=== PATIENT | male | born 1970 | race Caucasian/White ===

== ENCOUNTER → 2017-09-15 | Day surgery (SDC) | payer BC ==
[2017-09-08 09:51] VITALS: Ht 179.1 cm; Wt 133.2 kg
[~2017-09-15] VITALS: Ht 179.1 cm; Wt 133.2 kg
[~2017-09-15] MED LIST: ATROPINE SULFATE 0.1 MG/ML 5ML SYR IV PRN; BUPIVACAINE 0.5 % 5 MG/1 ML PF 10ML VIAL ONE; CETI10TA84 PO; CLINDAMYCIN 600MG IV SCH; EpHEDrine SULFATE INJ 50 MG/ML AMP IV PRN; FAMO40TA6 PO; FENTANYL CITRATE INJ 50 MCG/1 ML 2 ML VIAL IV PRN; FENTANYL CITRATE INJ 50 MCG/1 ML 2 ML VIAL ONE; LACTATED RINGER'S 1000ML 1,000 ML IV SCH; LIDOCAINE HCL 1% 20 ML VIAL ONE; LIDOCAINE HCL 2% 2 ML VIAL (20MG/ML) ONE; LOSA1TAB38 PO; MIDAZOLAM HCL 1 MG/ML 2ML VIAL ONE; MOME6000 NAE; MONT1TAB3 PO; ONDANSETRON INJ 2 MG/ML 2 ML VIAL IV PRN; OXYCODONE/ACETAMINOPHEN 5-325 TAB PO PRN; PANT1TAB3 PO; PROPOFOL IV EMULSION 10 MG/ML 20 ML VIAL ONE; SODIUM CHLORIDE 0.9% 1000ML 1,000 ML IV SCH; TRAM-10 PO
--- NOTE | 2017-09-15 07:36 | History & Physical Bridge - [place] ---
H&P Re-Evaluation Bridge Note: I have examined the patient, reviewed the History & Physical and in the interval since the performance of the History & Physical I have noted the following changes of clinical significance: No changes noted
--- NOTE | 2017-09-15 08:36 | [facility] Post Operative Brief Note ---
Immediate Operative Summary Operative Date September 15, 2017. Pre-Operative Diagnosis Carpal tunnel syndrome, right Post-Operative Diagnosis same as preop Procedure(s) Performed Right Carpal Tunnel Release Surgeon Dr. Awan Esol Teacher Assistant Surgeon(s) ALEJANDRO Sheehan Estimated Blood Loss 0ML Findings Consistent with Post-Op Diagnosis Specimens none Drains None Anesthesia Type MAC Complication(s) none Disposition Disposition:
[2017-09-15 08:40] VITALS: TEMP 36.8
--- NOTE | 2017-09-15 08:42 | Discharge Instructions-SurgCtr ---
Discharge Instructions Date of Service September 15, 2017. Visit Reason for Visit: Right Carpal Tunnel Syndrome Discharge Discharge Diagnosis / Problem: SAME ABOVE Discharge Goals Goal(s): Decrease discomfort, Improve function Activity Recommendations Activity Limitations: as noted below Lifting Limitations: gradually increase as tolerated Exercise/Sports Limitations: until after follow-up appointment Shower/Bathe: tomorrow Anesthesia . Post Anesthesia Instructions: If you have had General Anesthesia or IV Sedation: * Do not drive today. * Resume driving when surgeon permits. * Do not make important decisions or sign legal documents today. * Call surgeon for: 1. Temperature elevations greater than 101 degrees F. 2. Uncontrollable pain. 3. Excessive bleeding. 4. Persistent nausea and vomiting. 5. Medication intolerance (nausea, vomiting or rash). * For nausea and vomiting use only clear liquids such as: tea, soda, bouillon until nausea subsides, then gradually increase diet as tolerated. * If you have any concerns or questions, call your surgeon's office. If physician is unavailable and it is an emergency, call 911 or go to the nearest emergency room. . Instructions / Follow-Up Instructions / Follow-Up MEDICATIONS: * Resume previous medications unless instructed otherwise by your surgeon. * Always take pain medication on a full stomach or with food to avoid upset stomach. * Do not drink alcohol or drive while taking narcotics. * Ibuprofen or Tylenol may be taken if narcotic not needed. SPECIAL CARE INSTRUCTIONS: __ None _X_ Keep extremity elevated and iced x 48 hours; apply ice 20-30 minutes 8-10 times/day. May remove at night. __ Sling __24 hrs/day __ Remove at night __ Shoulder Immobilizer __ 24 hrs/day __ Remove at night _X_ Dressing _X_ Maintain until seen in office, may shower with plastic over site __ Remove dressings in 24-48 hours and then may shower __ Cover incisions with band-aids after showering __ Do not remove steri-strips Call physician if chills or temperature rises above 102 degrees or pain unrelieved by prescribed pain medications at . . Diet Recommendations Home Diet: no limitations Procedures Procedures Performed: Right Carpal Tunnel Release Pending Studies Studies pending at discharge: no Medical Emergencies . Who to Call and When: Medical Emergencies: If at any time you feel your situation is an emergency, please call 911 immediately. . Non-Emergent Contact Non-Emergency issues call your: Primary Care Provider . . "Provider Documentation" section prepared by Kt Butt. .
--- NOTE | 2017-09-15 08:46 | Anesthesia Progress Nt - [facility] ---
Anesthesia Post Op Note Date & Time September 15, 2017 at 08:46 Vital Signs Pain Intensity: 0 Vital Signs Past 12 Hours Date Time Temp Pulse Resp B/P (MAP) Pulse Ox O2 Delivery O2 Flow Rate FiO2 09/15/17 08:40 36.8 92 16 157/89 (111) 95 Room Air 09/15/17 07:13 36.7 90 18 181/118 (139) 96 Room Air Notes Mental Status: alert / awake / arousable, participated in evaluation Pt Amnestic to Procedure: Yes Nausea / Vomiting: adequately controlled Pain: adequately controlled Airway Patency, RR, SpO2: stable & adequate BP & HR: stable & adequate Hydration State: stable & adequate Anesthetic Complications: no major complications apparent
[2017-09-15 09:01] VITALS: PULSE 90; O2SAT 96
[2017-09-15 09:11] VITALS: BP 140/72
--- NOTE | 2017-09-15 10:50 | OPERATIVE REPORT ---
DATE OF OPERATION: 09/15/2017 PREOPERATIVE DIAGNOSIS: Right carpal tunnel syndrome. POSTOPERATIVE DIAGNOSIS: Same. PROCEDURE: Decompression median nerve release, transverse carpal ligament, right wrist. SURGEON: Chris Awan MD STERILE PROCESSING TECHNICIAN: Kt Butt PA-C. ANESTHESIOLOGIST: Kt Morris MD ANESTHESIA: Local with IV sedation. DRAINS: None. COMPLICATIONS: None. CONDITION: The patient tolerated the procedure well and returned to recovery in apparent satisfactory condition. INDICATIONS FOR SURGERY: Leandro is a 47-year-old male with increasing pain and numbness in both hands, right worse than left, was diagnosed a carpal tunnel syndrome and elected to go ahead and proceed with surgery. Procedure, expected outcomes and side effects were all explained in detail. DESCRIPTION OF PROCEDURE: The patient was taken to the OR at which time he was placed supine on the operating table. The right hand was prepped and draped in the usual sterile fashion for this surgery. The anticipated incision site was infiltrated with 1% Xylocaine. A forearm tourniquet was placed on the arm and tourniquet was placed up to 250 mmHg. Incision was made vertically over the transverse carpal tunnel ligament. Dissection was done down until the palmar fascia was identified and divided with a 15-blade. The transverse carpal ligament was identified and also divided with the 15-blade and upbiting scissors. A small portion of the forearm fascia was divided also. Electrocautery was used to control any areas of bleeding. The nerve was freed up from any scar tissue and adequately decompressed. The wound then was copiously irrigated. It was closed then with interrupted 4-0 nylon sutures. Marcaine without Epinephrine was placed in the skin edges. It was closed in a layered fashion. We placed a sterile dressing of Xeroform, 4 x 4, volar splint, and an Noah bandage. DISPOSITION: The patient was returned back to the recovery room in apparent satisfactory condition. I attest to the content of the Intraoperative Record and any orders documented therein. Any exception s are noted below.
== END | disposition home or self-care (01) ==
LOC: X.SURG 07:00
PROVIDERS: ATTEND Orthopaedic Surgery
DX: G56.01 Carpal tunnel syndrome, right upper limb (principal); G47.33 Obstructive sleep apnea (adult) (pediatric); I10 Essential (primary) hypertension; E66.9 Obesity, unspecified; Z88.0 Allergy status to penicillin; Z99.89 Dependence on other enabling machines and devices; Z87.442 Personal history of urinary calculi

== ENCOUNTER 2021-07-31 05:02 | Observation (INO) ==
--- NOTE | 2021-05-21 11:06 | PAT Medication Instructions ---
Medication Instructions Date of Service May 21, 2021 Home Medications albuterol sulfate 90 mcg/actuation aerosol inhaler 1 inh INHALATION QID PRN famotidine 20 mg tablet 20 mg PO BID fluticasone 250 mcg-salmeterol 50 mcg/dose blistr powdr for inhalation (Advair Diskus) 1 inh INHALATION BID hydrochlorothiazide 25 mg tablet 25 mg PO QAM losartan 100 mg tablet 100 mg PO QAM metformin 500 mg tablet 500 mg PO BID metoprolol succinate 25 mg tablet,extended release 24 hr 25 mg PO HS montelukast 10 mg tablet 10 mg PO QAM pantoprazole 40 mg tablet,delayed release 40 mg PO QAM potassium citrate 10 mEq (1,080 mg) tablet,extended release 10 meq PO UD celecoxib 200 mg capsule 200 mg PO HS ASK your surgeon for instructions celecoxib 200 mg capsule 200 mg PO HS DO NOT take the morning of surgery hydrochlorothiazide 25 mg tablet 25 mg PO QAM losartan 100 mg tablet 100 mg PO QAM metformin 500 mg tablet 500 mg PO BID montelukast 10 mg tablet 10 mg PO QAM potassium citrate 10 mEq (1,080 mg) tablet,extended release 10 meq PO UD Take morning of surgery With a small sip of water, OTHERWISE NOTHING TO EAT OR DRINK AFTER MIDNIGHT: famotidine 20 mg tablet 20 mg PO BID fluticasone 250 mcg-salmeterol 50 mcg/dose blistr powdr for inhalation (Advair Diskus) 1 inh INHALATION BID albuterol sulfate 90 mcg/actuation aerosol inhaler 1 inh INHALATION QID PRN(use if needed; please bring with you to hospital day of surgery if possible). pantoprazole 40 mg tablet,delayed release 40 mg PO QAM Take evening before surgery albuterol sulfate 90 mcg/actuation aerosol inhaler 1 inh INHALATION QID PRN(if needed) famotidine 20 mg tablet 20 mg PO BID fluticasone 250 mcg-salmeterol 50 mcg/dose blistr powdr for inhalation (Advair Diskus) 1 inh INHALATION BID metformin 500 mg tablet 500 mg PO BID metoprolol succinate 25 mg tablet,extended release 24 hr 25 mg PO HS Other Notes If you have any questions please call us at [phone] or [phone] or [phone] or [phone]
--- NOTE | 2021-05-22 11:52 | Anesthesiology Consultation ---
Date of Service May 22, 2021 Assessment & Plan (1) Encounter for pre-operative examination: - check BSG am DOS. - elevated A1c: Dr. Pang advised optimization note be sent to PCP for evaluation of diabetic control and optimization prior to surgery. Optimization note completed to be faxed to PCP office including notation on coordinating with surgeon's office. Surgeon's office previously made aware of elevated A1c and per Radha, Dr. Gonzales will require lower A1c prior to patient proceeding with surgery. They are coordinating with patient. - Outpatient joint assessment: Patient is currently scheduled for inpatient pathway. If re-evaluated pending system levels during current pandemic/surgeon requests outpatient pathway, patient is not recommended outpatient joint candidate. - COVID screening: Per assessment on 05/22/2021: Travel screen negative, no known COVID-19 positive contacts or current COVID-19 related symptoms in past 2 weeks. Surgeon arranging preop COVID testing, scheduled 06/17/2021 [place]. Awaiting results. Chart Review Chart Review: Pending: Refer to Additional Notes / Consult section and Patient seen in Pre Admission Testing Teaching & Discussion Pre-Anesthesia Teaching/Discussion Notes: Instructed NPO after midnight before surgery, except medications with 15 cc of water. Medication instructions provided according to the PAT guidelines. History Surgery Operation Date: 06/19/21 07:00 Proposed Procedures p Right Total Knee Arthroplasty - Chato Eleni Gonzales MD Height/Weight Height: 5 ft 10 in Weight: 144.8 kg Allergies Allergy/AdvReac Type Severity Reaction Status Date / Time aspirin Allergy Intermediate Hives Verified 05/21/21 09:24 Penicillins Allergy Intermediate Hives Verified 05/21/21 09:24 prednisone Allergy Intermediate Dyspnea Verified 05/21/21 09:24 Additional Notes: he reports no symptoms with regular aspirin, hives with coated aspirin Medications Home Medications Medication Instructions Recorded Confirmed Last Taken albuterol sulfate 90 mcg/actuation 1 inh INHALATION QID PRN 01/21/21 05/21/21 01/22/21 aerosol inhaler famotidine 20 mg tablet 20 mg PO BID 01/21/21 05/21/21 01/24/21 21:00 fluticasone 250 mcg-salmeterol 50 1 inh INHALATION BID 01/21/21 05/21/21 01/24/21 07:00 mcg/dose blistr powdr for inhalation (Advair Diskus) hydrochlorothiazide 25 mg tablet 25 mg PO QAM 01/21/21 05/21/21 01/24/21 07:00 losartan 100 mg tablet 100 mg PO QAM 01/21/21 05/21/21 01/24/21 08:00 metformin 500 mg tablet 500 mg PO BID 01/21/21 05/21/21 01/23/21 07:00 metoprolol succinate 25 mg 25 mg PO 01/21/21 05/21/21 01/24/21 21:00 tablet,extended release 24 hr montelukast 10 mg tablet 10 mg PO QAM 01/21/21 05/21/21 01/24/21 07:00 pantoprazole 40 mg tablet,delayed 40 mg PO QAM 01/21/21 05/21/21 01/24/21 07:00 release potassium citrate 10 mEq (1,080 10 meq PO UD 01/21/21 05/21/21 01/24/21 18:00 mg) tablet,extended release celecoxib 200 mg capsule 200 mg PO HS 05/21/21 05/21/21 Unknown Past Medical History Medical History (Updated 05/22/21 @ 11:58 by Isela Powell PA-C) Asthma stable > 3 months since last albuterol inhaler us needed Diabetes mellitus, type 2 NIDDM GERD (gastroesophageal reflux disease) controlled History of COVID-19 Dx 09/24/20 (S) > symptoms at time of: fever, SOB, chills, sent home from [facility] ER and returned next day for antibody transfusion > resolved Hypertension controlled, stable per pt Morbid obesity with BMI of 45.0-49.9, adult Sleep apnea BIPAP (compliant) Patient denies h/o stroke, seizures, heart attack, heart failure, blood clots or blood transfusions. Exercise / Class Metabolic Activity III < 4 Walking/Shop/Light housework (denies CP or SOB with regular activity) Past Family History Family History Other No family history of adverse response to anesthesia Past Surgical History Surgical History (Updated 05/22/21 @ 12:00 by Isela Powell PA-C) History of arthroscopy of right knee partial medial and lateral meniscectomy 01/25/2021: Grade 2 view, MAC#3, ETT#8.0, atraumatic x 1. No issues per anesthesia postop progress note. History of hand surgery bilat carpal tunnel release Hx of lithotripsy Multiple Past Anesthesia History No Hx of Anesthesia Complications and No Family Hx of Anesthesia Complications History of PONV No Hx of PONV and No Hx of Motion Sickness Social History Smoking Status: Never smoker Do You Dip or Chew Tobacco: No Hx Alcohol Use: No Hx Substance Use: No substance use type: does not use Review of Systems Chronic cough occasionally productive of phlegm associated with watery eyes with allergies and cold weather. Patient denies chest pain, shortness of breath, dyspnea on exertion, fever, chills, wheezing, or palpitations. Physical Exam Vital Signs Vitals BP 112/77 P 88 TEMP 98.4 SP02 95% on RA RESP 17 Physical Short, thick neck Limited cervical extension range of motion without pain Full TMJ range of motion TMD 3 finger breaths Mallampati Score 2 Dentition: intact, one missing left upper side; denies loose or chipped teeth, caps/crowns, implants or bridges Lungs: normal respiratory effort. Clear throughout to auscultation, no adventitious breath sounds Cardiac: regular rate and rhythm, no murmurs noted Carotid arteries: negative bruit bilat Extremities: no distal extremity edema Lab Results Anesthesia Preop Results Results Anesthesia Widget: WBC 8.68 K/uL (4.8-10.8) 05/22/21 Hgb 15.8 g/dL (14.0-18.0) 05/22/21 Hct 47.0 % (42-52) 05/22/21 Plt 206 K/uL (130-400) 05/22/21 Na 135 mmol/L (136-145) L 05/22/21 K 4.1 mmol/L (3.5-5.1) 05/22/21 Cl 98 mmol/L (98-107) 05/22/21 CO2 30 mmol/L (21-32) 05/22/21 BUN 14 mg/dl (6-23) 05/22/21 Creat 0.94 mg/dl (0.6-1.4) 05/22/21 Glucose Level 240 mg/dl (70-99) H 05/22/21 PT 10.3 Seconds (9.0-12.0) 05/22/21 PTT 25.9 Seconds (21.0-31.0) 05/22/21 INR 1.0 (0.9-1.1) 05/22/21 HA1c 8.7 % (4.5-5.6) H 05/22/21 Blood Type O Positive 05/22/21 Antibody Screen NEGATIVE 05/22/21 Lab Comments: Surgeon's office made aware of elevated A1c. Testing Electrocardiogram Date: 01/22/21 Normal sinus rhythm, rate 83 bpm. Chest X-Ray Date: 01/22/21 FINDINGS: No pneumothorax. No pleural effusion. No large infiltrates or consolidative lesions are seen. Mild nonspecific p rominence of pulmonary interstitium is seen in bilateral bases which might represent scattered atelectasis. Cardiomediastinal silhouette is within normal limits in size. No significant pulmonary vascular congestion.. Osseous structures: Mild degenerative changes of the spine. IMPRESSION: 1. No large infiltrates or consolidative lesions. Possible minimal atelectasis at bilateral bases.
[2021-07-31] MEDS ORDERED: LR 60ML/HR IV SCH (06:00)
[2021-07-31] MEDS ORDERED: TRANEXAMIC ACID 1,000 MG **IV Intra-op IV SCH (06:00)
[2021-07-31] MEDS ORDERED: FAMOTIDINE 20 MG TAB PO SCH (06:00)
[2021-07-31] MEDS ORDERED: ROPIVACAINE 0.5% HCL/PF 150 MG, BUPIVACAINE 0.75% MPF 20 ML, EPINEPHrine 0.15 MG, Ketor... INFIL SCH (06:00)
[2021-07-31] MEDS ORDERED: LR 500ML BOLUS, THEN 15ML/HR IV SCH (06:00)
[2021-07-31] MEDS ORDERED: Scopolamine 1 MG TDSY TD SCH (06:00)
[2021-07-31] MEDS ORDERED: CeleBREX 200 MG CAP PO SCH ×2 (06:00→21:00)
[2021-07-31] MEDS ORDERED: TRANEXAMIC ACID 1,000 MG **IV Pre-op IV SCH (06:00)
[2021-07-31] MEDS ORDERED: traMADol HCL 50 MG TABLET PO SCH (06:00)
[2021-07-31] MEDS ORDERED: ACETAMINOPHEN 500 MG TAB PO SCH (06:00)
[2021-07-31 06:28] LABS: BUN Creatinine Ratio 15.4 (10-20); Calcium 9.1 mg/dl (8.5-10.1); Creatinine Clr Calc Pharmacy 132.8 ml/min; Est GFR (African American) 113.5 ml/min; Est GFR (Non-African American) 97.9 ml/min; Potassium 2.8 mmol/L (3.5-5.1)
[2021-07-31] MEDS ORDERED: BUPIVACAINE 0.5 % 5 MG/1 ML PF 10ML VIAL ONE (06:28)
[2021-07-31] MEDS ORDERED: fentaNYL citrate 100 MCG/2 ML VIAL ONE (06:38)
[2021-07-31] MEDS ORDERED: MIDAZOLAM HCL 1 MG/ML 2ML VIAL ONE (06:38)
[2021-07-31] MEDS ORDERED: ORTHO JOINT ANESTHETIC ONE (06:46)
--- NOTE | 2021-07-31 06:46 | History & Physical Bridge Note ---
Date of Service July 31, 2021 History & Physical Bridge Note I have examined the patient, reviewed the History & Physical and in the interval since the performance of the History & Physical I have noted the following changes of clinical significance: no changes noted Patient is aware of the risks, is asymptomatic, and tested negative for COVID- 19.
[2021-07-31] MEDS ORDERED: PROPOFOL IV EMULSION 10 MG/ML 20 ML VIAL IV ONE ×4 (07:28→09:36)
[2021-07-31] MEDS ORDERED: ATROPINE SULFATE 0.1 MG/ML 10ML SYR IV PRN (07:28)
[2021-07-31] MEDS ORDERED: fentaNYL citrate 100 MCG/2 ML VIAL IV PRN (07:28)
[2021-07-31] MEDS ORDERED: ePHEDrine sulfate 50 MG/ML AMP IV PRN (07:28)
[2021-07-31] MEDS ORDERED: ONDANSETRON INJ 2 MG/ML 2 ML VIAL IV PRN ×2 (07:28→10:28)
[2021-07-31] MEDS ORDERED: POTASSIUM CITRATE 10 MEQ TAB PO SCH ×2 (09:00→17:00)
--- NOTE | 2021-07-31 10:07 | Post Operative Brief Note ---
Immediate Post Op Note v1 Date of Surgery July 31, 2021 Pre & Post Diagnosis Operation Date: 07/31/21 07:00 Pre-Op Diagnosis: Degenerative Joint Disease, Right Knee Post-Op Diagnosis: Degenerative Joint Disease, Right Knee I identified the patient and participated in the time-out.: Yes Procedure Operation Date: 07/31/21 07:00 Actual Procedures p Right Total Knee Arthroplasty(Right) - Chato Gonzales MD Surgeon Chato Gonzales MD Call Center Consultant Ari Cevallos MD & M ALEJANDRO Macias Estimated Blood Loss 100 Findings Consistent with Post-Op Diagnosis Fluids 1200 cc Specimens Right knee contents Anesthesia Type MAC Spinal Regional Complications none
--- NOTE | 2021-07-31 10:08 | Operative Report ---
Post Operative Report Pre & Post Diagnosis Operation Date: 07/31/21 07:00 Pre-Op Diagnosis: Degenerative Joint Disease, Right Knee Post-Op Diagnosis: Degenerative Joint Disease, Right Knee I identified the patient and participated in the time-out.: Yes Procedure Operation Date: 07/31/21 07:00 Actual Procedures p Right Total Knee Arthroplasty(Right) - Chato Gonzales MD Surgeon Chato Gonzales MD Commercial Installer Ari Cevallos MD & M ALEJANDRO Macias Estimated Blood Loss 100 Findings See Below Examined Under Anesthesia: ROM -- There was 5 degrees to 135 degrees of flexion Ligamentous examination -- revealed stable Gonzalez, posterior drawer, varus and valgus stress at 0 and 30 degrees. Outerbridge Type III changes of Patella and Medial compartment. Degenerative medial meniscus posteriorly to apex. Fluids 1200 cc Specimens Right knee contents Anesthesia Type MAC Spinal Regional Complications none Indications This is a 51-year-old male who has clinical and radiographic findings consistent with osteoarthritis of the a right knee, that has failed conservative treatment. I recommended that a right total knee replacement be performed. The patient understands the risks of surgery, which include but not limited to: bleeding, infection, re-operation, damage to nerves and arteries, continued knee pain, knee stiffness, DVT, and . The patient understands all of these instructions and explanations, all of his questions have been satisfactorily addressed and the patient has elected to proceed. Informed consent was signed. Description of Procedure IMPLANTS: 1. Femur: Triathlon #6 right PS. 2. Tibia: Triathlon #6 [place]. 3. Insert: Triathlon #6 x 9 mm PS X3 poly. 4. Patella: Triathlon A38 x 11 mm X3 poly. 5. Simplex cement. Procedure: The patient was taken to the Operating Room and placed in the supine position after spinal and adductor canal nerve block was administered. My initials and a multidisciplinary time-out were used to identify the right leg as the correct operative limb. A tourniquet was placed high in the thigh. Prior to the incision, 3 grams of intravenous Ancef espinosa given. The right leg was then prepped and draped in a standard sterile fashion. An Esmarch was used to exsanguinate the leg and the tourniquet was inflated to 250 mmHg. The planned mid-line 20 cm incision was created exposing the extensor mechanism. The medial parapatellar arthrotomy was made and the patella was everted. The patella was addressed first. It was prepared by reaming from 25 mm down to 14 mm. An A38 button was found to fit best. The peg holes were made in the standard fashion. The femur was addressed next and the guide hi was placed intramedullary. The initial cutting block was placed with 5 degrees of valgus and removing 10 mm for the distal cut. The cut was made and the 4-in-1 cutting block for a size 6 femur was placed. These cuts and the cuts to place the box were made in the standard fashion. Our attention was then drawn to the tibia cut with the external cutting guide, taking 4 mm from the medial low side. There was sufficient extension and flexion gap to fit a 9 mm spacer. A #6 Tibial baseplate fit well. A trial with a 9 mm spacer showed excellent stability in both flexion and extension, with good ligament balance, and thumbs free patellar tracking. Range of motion of 0- 135 degrees. The tibial baseplate was prepped for the keel and stem. All components were removed. The tourniquet was deflated. Hemostasis was obtained. 90 ml of total knee cocktail were injected into the soft tissues and periosteum. A bone plug was placed in the femur and covered with bone wax. After a 15 minute break, the limb was exsanguinated again and the tourniquet was re-inflated. All surfaces were copiously irrigated prior to placement of the components. The femoral component followed by Tibial baseplate were cemented in place and the 9 mm X3 poly was placed. Next, the patellar button was placed using the same Simplex cement. Again with the range of motion and stability were unchanged. The extensor mechanism was closed with 1-0 and 0 Vicryl with the knee bent approximately 60 degrees in a standard fashion. The peritenon and deep fascia was closed with 2-0 Vicryl. The subcutaneous layer was closed with 3-0 Vicryl. The skin was closed with Zipline and shield. The limb was cleaned and dried. 4x4 dressing was placed over top followed by ABDs, sterile Webril, and a foot to thigh Noah bandage. The patient was then transferred to the Recovery Room in stable condition. The sponge and needle counts were correct. POST-OP INSTRUCTIONS: The patient will be WBAT. The patient will be admitted to the hospital. The patient will use the knee immobilizer when ambulating and standing until good quad control is achieved. Labs will be obtained during the stay. DVT prophylaxis will included aspirin for 6 weeks, TEDs, and mechanical foot pumps. The dressing will be changed prior to their discharge or postop day #2 and covered with a Silverlon dressing, whichever comes first. I attest to the content of the Intraoperative Record and any orders documented therein. Any exceptions are noted below.
--- NOTE | 2021-07-31 10:22 | Operative Report ---
Post Operative Report Pre & Post Diagnosis Operation Date: 06/19/21 07:00 <No data on this case meets the specified criteria> Operation Date: 07/31/21 07:00 Pre-Op Diagnosis: Degenerative Joint Disease, Right Knee Post-Op Diagnosis: Degenerative Joint Disease, Right Knee I identified the patient and participated in the time-out.: Yes Procedure Operation Date: 06/19/21 07:00 <No data on this case meets the specified criteria> Operation Date: 07/31/21 07:00 Actual Procedures p Right Total Knee Arthroplasty(Right) - Chato Gonzales MD Surgeon Chato Gonzales MD Electrical Contractor Ari Cevallos MD & M ALEJANDRO Macias Estimated Blood Loss 100 Findings Consistent with Post-Op Diagnosis Consistent with post op diagnosis Specimens No specimens Description of Procedure I participated in prepping dressing and assisted Dr. Gonzales during the procedure. Please see Dr. Gonzales note. I attest to the content of the Intraoperative Record and any orders documented therein. Any exceptions are noted below. Supervising Physician Co-Signing Physician Notes Dr. Gonzales
[2021-07-31] MEDS ORDERED: diphenhydrAMINE Capsule 25 MG CAP PO PRN (10:28)
[2021-07-31] MEDS ORDERED: MAGNESIUM HYDROXIDE SUSP 30 ML UDC PO PRN (10:28)
[2021-07-31] MEDS ORDERED: NALOXONE HCL 0.4 MG/1 ML VIAL/CARP IV PRN (10:28)
[2021-07-31] MEDS ORDERED: bisacodyL 10 MG SUPP PR PRN (10:28)
[2021-07-31] MEDS ORDERED: METOCLOPRAMIDE HCL INJ 5 MG/ML 2 ML VIAL IV PRN (10:28)
--- NOTE | 2021-07-31 10:52 | Operative Report ---
Post Operative Report Pre & Post Diagnosis Operation Date: 06/19/21 07:00 <No data on this case meets the specified criteria> Operation Date: 07/31/21 07:00 Pre-Op Diagnosis: Degenerative Joint Disease, Right Knee Post-Op Diagnosis: Degenerative Joint Disease, Right Knee I identified the patient and participated in the time-out.: Yes Procedure Operation Date: 06/19/21 07:00 <No data on this case meets the specified criteria> Operation Date: 07/31/21 07:00 Actual Procedures p Right Total Knee Arthroplasty(Right) - Chato Gonzales MD Surgeon Dr Chato Gonzales Take Away Attendant Ari Cevallos MD & M ALEJANDRO Macias Estimated Blood Loss 100 Findings Consistent with Post-Op Diagnosis Specimens none Description of Procedure Pt was taken to operating room, placed under general anesthesia with peripheral nerve block. Pt was given 2g Ancef IV. Prepped and draped in sterile fashion. I was present during the entire case and assisted with positioning, instrumentation, closure and dressings. Please see Dr. Gonzales's op report for further detail. Pt was awake and transferred to PACU in stable condition I attest to the content of the Intraoperative Record and any orders documented therein. Any exceptions are noted below. Supervising Physician Co-Signing Physician Notes Dr. Gonzales
--- NOTE | 2021-07-31 11:09 | XRay Report ---
XR knee RT 1 or 2V routine CLINICAL HISTORY: Surgical Post Op TECHNIQUE: 2 views of the right knee were obtained. Comparison: Comparison is made to knee radiographs 01/01/2021 FINDINGS: Postoperative changes of knee arthroplasty are seen. Subcutaneous emphysema is noted. Joint spaces ar e well-preserved. The alignment is anatomic. No joint effusion is seen. No soft tissue abnormality is seen. IMPRESSION: Expected postoperative appearance status post placement of total knee arthroplasty. ACT 112: Negative or not required by law. Electronically signed by: Antoine Lam M.D. 07/31/2021 11:07 AM
--- NOTE | 2021-07-31 11:20 | Anesthesiology Progress Note ---
Date of Service July 31, 2021 Anesthesia Post Procedure Vital Signs Vital Signs: Temp Pulse Pulse Resp BP Pulse Ox 07/31/21 10:55 79 20 115/68 94 07/31/21 10:45 72 17 108/72 94 07/31/21 10:34 97.2 F L 78 18 102/65 95 07/31/21 05:50 98.2 F 73 20 122/73 94 Transfer of Care Handoff Completed per policy Notes Mental Status: alert / awake / arousable and participated in evaluation Patient Amnestic to Procedure: Yes Nausea / Vomiting: adequately controlled Pain: adequately controlled Airway Patency, RR, SpO2: stable & adequate BP & HR: stable & adequate Hydration State: stable & adequate Neuraxial Anesthesia: was administered and sensory block is resolving Anesthetic Complications: no major complications apparent and Pt Satisfied with anesthetic care
[2021-07-31] MEDS ORDERED: ALBUTEROL HFA 8 GM INHALER INH PRN (12:14)
[2021-07-31] MEDS ORDERED: DEXTROSE 50% 50 ML SYRINGE IV PRN (12:36)
[2021-07-31] MEDS ORDERED: GLUCOSE 40% GEL 15 GM TUBE PO PRN (12:36)
[2021-07-31] MEDS ORDERED: GLUCOSE 10 TABS/TUBE PO PRN (12:36)
[2021-07-31] MEDS ORDERED: GLUCAGON FOR INJ 1 MG VIAL SQ PRN (12:36)
[2021-07-31] MEDS ORDERED: CARBOHYDRATES FOR HYPOGLYCEMIA PO PRN (12:36)
[2021-07-31] MEDS: oxyCODONE HCL IR 5 MG TAB (IMMEDIATE RELEASE) PO PRN ×3 (12:37→23:32)
[2021-07-31] MEDS: SODIUM CHLORIDE 0.9% 1000ML 1,000 ML IV SCH ×2 (12:37→21:20)
[2021-07-31] MEDS ORDERED: POTASSIUM CHLORIDE CRTAB 20 MEQ TABCR PO STA (12:39)
--- NOTE | 2021-07-31 12:44 | Hospitalist Consultation ---
Date of Consultation July 31, 2021 Assessment & Plan (1) Status post total knee replacement: Right sided TKA performed 07/31 Pain and VTE management per orthopedics (2) Hypokalemia: Suspect secondary to HCTZ use, will place this medication on hold c urrently KCl 10 meq x2 IV given during surgery which increased potassium from 2.8 -> 3.0 Give additional 40 meq PO now Repeat BMP in AM (3) Diabetes mellitus, type 2: HbA1C 6.9 in July T2DM diet On metformin 500mg PO BID and Trulicity (last took last Thursday) as outpatient - hold as inpatient While inpatient we will utilize Novolog: Goal BSG Range: Low 110 mg/dL, High 140 mg/dL Correction Factor: 45 mg/dL/unit No carb ratio BSGs ACHS if eating, q6h if npo Given good control as outpatient recommend discharging on his usual home medications (4) Sleep apnea: BiPAP HS - is bringing in his own (5) Hypertension: Continue losartan 100mg PO daily, metoprolol succinate 25mg PO HS HCTZ on hold as above due to hypokalemia (6) GERD (gastroesophageal reflux disease): Continue pantoprazole 40mg PO daily and famotidine 20mg PO BID (7) Asthma: Continue maintenance inhaler with Advair Diskus or hospital formulary equivalent VTE Prophylaxis - deferred to orthopedics Diet - T2DM Disposition - per orthopedics History of Present Illness Reason for Consultation: Post op medical management (diabetes, hypokalemia) Requesting Physician: Wilma Cevallos MD Attending Physician: Chato Gonzales MD History of Present Illness Danyel Del Angel is a 51 year old male elective admission for total knee arthroplasty performed today (07/31) by Dr Gonzales. Estimated blood loss 100ml. Patient reports doing well post operatively and is currently off oxygen. Medicine consulted for hypokalemia. Potassium 2.8 mmol/L pre-operatively. Received 20 meq IV during operation. Post operatively K 3.0. He usually takes Potassium citrate 20meq in the morning and 10 meq at night. He reports missing his dose this morning. Presumably this is due to him taking hydrochlorothiazide which he also did not take this morning. Medicine also consulted for his diabetes. He reports taking Trulicity on Wednesdays (would be due it today). He has held metformin for the last 3 days pre-operatively. HbA1C markedly improved from 8.7 in May to 6.9 today. He reports this is because his operation was cancelled due to this and he has made significant dietary changes since. He reports usual good blood pressure control with sBP 130s. Gerd under control but on famotidine and pantoprazole - recommended considering EGD as outpatient which he has never had performed. Allergies Allergy/AdvReac Type Severity Reaction Status Date / Time aspirin Allergy Intermediate Hives Verified 07/31/21 05:43 Penicillins Allergy Intermediate Hives Verified 07/31/21 05:43 prednisone Allergy Intermediate Dyspnea Verified 07/31/21 05:43 Home Medications Medication Instructions Recorded Confirmed Type albuterol sulfate 90 mcg/actuation 1 inh INHALATION QID PRN 01/21/21 07/31/21 History aerosol inhaler famotidine 20 mg tablet (Pepcid) 20 mg PO BID 01/21/21 07/31/21 History fluticasone 250 mcg-salmeterol 50 1 inh INHALATION BID 01/21/21 07/31/21 History mcg/dose blistr powdr for inhalation (Advair Diskus) hydrochlorothiazide 25 mg tablet 25 mg PO QAM 01/21/21 07/31/21 History losartan 100 mg tablet 100 mg PO QAM 01/21/21 07/31/21 History metformin 500 mg tablet 500 mg PO BID 01/21/21 07/31/21 History metoprolol succinate 25 mg 25 mg PO HS 01/21/21 07/31/21 History tablet,extended release 24 hr montelukast 10 mg tablet 10 mg PO QAM 01/21/21 07/31/21 History (Singulair) pantoprazole 40 mg tablet,delayed 40 mg PO QAM 01/21/21 07/31/21 History release (Protonix) potassium citrate 10 mEq (1,080 10 meq PO UD 01/21/21 07/31/21 History mg) tablet,extended release celecoxib 200 mg capsule (Celebrex) 200 mg PO HS 05/21/21 07/31/21 History dulaglutide 0.75 mg/0.5 mL 0.75 mg SUBCUT 07/31/21 History subcutaneous pen injector (Trulicity) Patient History Medical History (Updated 07/31/21 @ 16:37 by Chato Gonzales MD) Asthma stable > 3 months since last albuterol inhaler us needed Diabetes mellitus, type 2 GERD (gastroesophageal reflux disease) History of COVID-19 Dx 09/24/20 ([facility]) > symptoms at time of: fever, SOB, chills, sent home from [facility] and returned next day for antibody transfusion > resolved Hypertension Morbid obesity with BMI of 45.0-49.9, adult Osteoarthritis of right knee Sleep apnea BIPAP Surgical History (Updated 07/31/21 @ 12:34 by Minh Navarro MD) History of arthroscopy of right knee partial medial and lateral meniscectomy 01/25/2021: Grade 2 view, MAC#3, ETT#8.0, atraumatic x 1. No issues per anesthesia postop progress note. History of carpal tunnel release of both wrists Hx of lithotripsy Multiple Family History Other No family history of adverse response to anesthesia Social History Smoking Status: Never smoker Second Hand Exposure: No; Do You Dip or Chew Tobacco: No; Tobacco Cessation Education Requested by Patient: No Hx Alcohol Use: No Hx Substance Use: No Preferred Language: [place]ib[place]ian Communication Ability: Effective Loan Auditor Required: No Beliefs That Will Affect Care: None Current Living Situation: Spouse and Family Current Living Situation Comment: Lives with and kids Other Information That Helps Us Care for You: No Feels Safe at Home: Yes Safety Concerns: Feels Safe At This Time Assistive Devices: Walker Review of Systems Review of Systems: All systems reviewed & are unremarkable except as noted in Subjective Physical Exam Constitutional: WD/WN, vitals as above + morbidly obese Eyes: + anicteric sclerae; normal pupil size ENMT: external ear and nose normal, oropharynx normal Neck: trachea midline, no thyromegaly Respiratory: normal respiratory effort, lungs clear to auscultation Cardiovascular: RRR, no murmur, no edema Gastrointestinal (Abdomen): Inspection/Auscultation: normal bowel sounds Percussion/Palpation: abdomen soft; abdomen nontender, no guarding and abdomen not rigid Musculoskeletal: NV intact distal to operation site - good cap refill and sensation and 1st toe plantar/dorsiflexion intact Neurologic: awake; not confused Psychiatric: A+Ox3, euthymic affect Results & Data Results & Data ([facility]) Vital Signs (Past 12 Hours) Vital Signs Temp Pulse Pulse Resp BP Pulse Ox 07/31/21 11:55 75 15 110/68 95 07/31/21 11:35 83 18 118/70 94 07/31/21 11:20 36.6 C 75 20 113/68 94 07/31/21 11:05 75 18 109/87 94 07/31/21 10:55 79 20 115/68 94 07/31/21 10:45 72 17 108/72 94 07/31/21 10:34 36.2 C L 78 18 102/65 95 07/31/21 05:50 36.8 C 73 20 122/73 94 PG Care Time/CCT Total # of Minutes Spent Total Time Spent with Patient: Total time spent is greater than 50% in coordination of care (as documented) at patient's floor/unit and/or counseling patient: Coding Level of Care Code 71635 Office/OBS Consult Lvl 4 Diagnoses Status post total knee replacement Z96.659 Sleep apnea G47.30 Hypertension I10 GERD (gastroesophageal reflux disease) K21.9 Diabetes mellitus, type 2 E11.9 Hypokalemia E87.6 Asthma J45.909
[2021-07-31] MEDS: POTASSIUM CHLORIDE / WTR 10 MEQ/100 ML PLCT IV SCH (12:57)
[2021-07-31] MEDS: ceFAZolin 2000MG 2,000 MG/15 ML SYR IV SCH ×2 (16:24→23:31)
[2021-07-31] MEDS: Scopolamine CHECK PATCH PLACEMENT SCH ×2 (16:29→23:31)
--- NOTE | 2021-07-31 16:40 | Orthopedic Progress Note ---
Date of Service July 31, 2021 Assessment & Plan (1) Osteoarthritis of right knee: Plan: POD #0 s/p Right TKA, doing as well as expected. Diabetic diet. WBAT as tolerated with walker. OOB to chair. Continue pain control. Check labs tomorrow. DVT prophylaxis: TEDs 3 weeks, foot pumps while in hospital, ASA 81 mg BID for 6 weeks. PT/OT. D/C planning. Present on Admission?: Yes Admission and Anticipated Discharge Date Admission Date: July 31, 2021 Subjective Doing fine. Pain controlled with oral pain medicine. Review of Systems Review of Systems: All systems reviewed & are unremarkable except as noted in HPI & below Physical Exam Physical Exam: RLE: Sensation to light touch intact. wiggling toes. Able to preform straight leg raise. BCR < 2 sec. Dressing clean, dry, intact. Calf soft, non-tender. Results & Data ([facility]) Vital Signs (Past 12 Hours) Vital Signs Temp Pulse Pulse Resp BP Pulse Ox 07/31/21 15:10 36.9 C 68 16 105/66 96 07/31/21 14:10 36.7 C 70 16 95/57 L 95 07/31/21 13:10 64 16 111/69 95 07/31/21 12:39 36.3 C L 66 16 97/62 L 94 07/31/21 12:10 36.6 C 67 16 107/66 96 07/31/21 11:55 75 15 110/68 95 07/31/21 11:35 83 18 118/70 94 07/31/21 11:20 36.6 C 75 20 113/68 94 07/31/21 11:05 75 18 109/87 94 07/31/21 10:55 79 20 115/68 94 07/31/21 10:45 72 17 108/72 94 07/31/21 10:34 36.2 C L 78 18 102/65 95 07/31/21 05:50 36.8 C 73 20 122/73 94 Diagnostic Findings Reviewed AP and Lateral radiographs right knee showed expected findings with recent cemented TKA components in good position. No fracture or dislocation.
[2021-07-31] MEDS: FERROUS GLUCONATE 324 MG TAB PO SCH (17:44)
[2021-07-31] MEDS: ASCORBIC ACID 500 MG TAB PO SCH (17:44)
[2021-07-31] MEDS: INSULIN ASPART PER UNIT SC SCH ×2 (17:45→21:22)
[2021-07-31] MEDS ORDERED: METOPROLOL SUCC 25MG EXT REL TAB PO SCH (21:00)
[2021-07-31] MEDS ORDERED: SENNA 8.6 MG TAB PO SCH (21:00)
[2021-07-31] MEDS: FAMOTIDINE 20 MG TAB PO SCH (21:21)
[2021-07-31] MEDS: DOCUSATE SODIUM 100 MG CAP PO SCH (21:22)
[2021-07-31] MEDS: HYDROmorphone INJ 0.5 MG/0.5 ML SYR IV PRN (21:30)
[2021-08-01] MEDS: oxyCODONE HCL IR 5 MG TAB (IMMEDIATE RELEASE) PO PRN ×3 (03:48→12:12)
[2021-08-01 05:41] LABS: Hematocrit (blood only) 34.9 % (42-52); Hemoglobin 11.8 g/dL (14.0-18.0); Mean Corpuscular Hemoglobin 28.5 pg (25-34); Mean Corpuscular Hgb Conc 33.8 g/dL (32-36); Mean Corpuscular Volume 84.3 fL (80-100); Mean Platelet Volume 10.1 fL (7.4-10.4); Platelet Count 213 K/uL (130-400); RDW Coefficient of Variation 13.8 % (11.5-14.5); RDW Standard Deviation 42.2 fL (36.4-46.3); Red Blood Count 4.14 M/uL (4.7-6.1); White Blood Count 11.22 K/uL (4.8-10.8)
[2021-08-01 06:00] LABS: BUN Creatinine Ratio 17.6 (10-20); Calcium 8.1 mg/dl (8.5-10.1); Creatinine Clr Calc Pharmacy 132.8 ml/min; Est GFR (African American) 113.5 ml/min; Est GFR (Non-African American) 97.9 ml/min; Potassium 3.3 mmol/L (3.5-5.1)
--- NOTE | 2021-08-01 08:24 | Orthopedic Progress Note ---
Date of Service August 01, 2021 Assessment & Plan (1) S/P total knee replacement using cement: Plan: Patient's dressings were changed today by me. Zip line cover was placed and then Mepilex waterproof dressing was applied. Maximino stocking was applied as well. Continue with ice and elevation. He will have PT/OT today. Anticipate discharge to home later today as long as he continues to do well. Weight-bear as tolerated using his walker. Follow-up in the office next week as scheduled. He will leave the Mepilex in place. He may shower and get the knee wet. Avoid soaking. Written discharge instructions were provided. Admission and Anticipated Discharge Date Admission Date: July 31, 2021 Supervising Physician Co-Signing Physician Notes I, Dr. Gonzales, saw and examined the patient and discussed the management with my PA. I reviewed my PAs note and agree with the documented findings and the plan of care I developed. Subjective Patient is seen in his room this morning. Denies any chest pain, shortness of breath, nausea, vomiting, or abdominal pain. He is having some right knee pain. Patient was just medicated. Dates he only slept fair. No additional complaints. Review of Systems Review of Systems: Unchanged from yesterday. Physical Exam Physical Exam: General: Well-developed, well-nourished, middle-aged male, in no acute distress. Sitting on the bed. Alert and oriented. Skin: Warm and dry with good turgor. No rashes or lesions. Postsurgical dres sing is in place on the right knee. Upon removal, he has expected postoperative edema. No ecchymosis. Zip line is in place. Wound edges are well approximated. No active bleeding. There is scant dried drainage on his dressings. Musculoskeletal: Patient has intact motor function of the quadricep,, and toes. He is able to set his quad and perform a straight leg raise. This does cause significant discomfort. No pain with palpation over the quadricep, hamstring, gastroc, or ankle. Neurologic: Gross sensation is intact across the right leg by soft touch. Peripheral pulses are 2+. Results & Data ([facility]) Vital Signs (Past 12 Hours) Vital Signs Temp Pulse Resp BP Pulse Ox 08/01/21 07:08 37 C 84 16 90/57 L 92 08/01/21 02:41 37.2 C 100 H 18 103/62 95 03/23/22 21:46 37.6 C H 75 18 100/64 95 07/31/21 21:26 79 98/61 L Laboratory Results H&H this morning are 11.8 and 34.9. White count of 11.2. Sodium 136, potassium 3.3, chloride 102. BUN of 16, creatinine 0.91. Glucose level 155.
[2021-08-01] MEDS: FERROUS GLUCONATE 324 MG TAB PO SCH (08:33)
[2021-08-01] MEDS: ASCORBIC ACID 500 MG TAB PO SCH (08:33)
[2021-08-01] MEDS: INSULIN ASPART PER UNIT SC SCH ×2 (08:36→12:14)
[2021-08-01] MEDS: HYDROmorphone INJ 0.5 MG/0.5 ML SYR IV PRN (08:46)
[2021-08-01] MEDS: DOCUSATE SODIUM 100 MG CAP PO SCH (08:47)
[2021-08-01] MEDS: Scopolamine CHECK PATCH PLACEMENT SCH (08:47)
[2021-08-01] MEDS: FAMOTIDINE 20 MG TAB PO SCH (08:48)
[2021-08-01] MEDS ORDERED: POTASSIUM CHLORIDE CRTAB 20 MEQ TABCR PO STA (08:52)
[2021-08-01] MEDS ORDERED: PANTOprazole 40 MG TAB PO SCH (09:00)
[2021-08-01] MEDS ORDERED: MULTIVITAMIN TAB PO SCH (09:00)
[2021-08-01] MEDS ORDERED: LOSARTAN POTASSIUM 50 MG TAB PO SCH (09:00)
[2021-08-01] MEDS ORDERED: FLUTICASONE/VILANTEROL 100/25MCG 14 PUFFS/INHALER INH SCH (09:00)
[2021-08-01] MEDS ORDERED: POTASSIUM CITRATE 10 MEQ TAB PO SCH (09:00)
[2021-08-01] MEDS ORDERED: ASPIRIN 81 MG ECTAB PO SCH (09:00)
[2021-08-01] MEDS ORDERED: MONTELUKAST SODIUM 10 MG TABLET PO SCH (09:00)
[2021-08-01] MEDS ORDERED: hydroCHLOROthiazide 25 MG TAB PO SCH (09:00)
--- NOTE | 2021-08-01 12:51 | Hospitalist Progress Note ---
Date of Service August 01, 2021 Assessment & Plan (1) Status post total knee replacement: Plan: Right sided TKA performed 07/31 Pain and VTE management per orthopedics plans for d/c this afternoon (2) Hypokalemia: Plan: Suspect secondary to HCTZ use, will place this medication on hold currently K improved but ordered additional 20meq in addition to his usual 10meq as K 3.3 and to resume BP medications tomorrow. Increase K in diet recommended, also can consider increasing K supplementation at discharge or in follow up with PCP Mag checked , wnl (3) Diabetes mellitus, type 2: Plan: HbA1C 6.9 in July T2DM diet On metformin 500mg PO BID and Trulicity (last took last Thursday) as outpatient - hold as inpatient While inpatient we will utilize Novolog: Goal BSG Range: Low 110 mg/dL, High 140 mg/dL Correction Factor: 45 mg/dL/unit No carb ratio BSGs ACHS if eating, q6h if npo Given good control as outpatient recommend discharging on his usual home medications, already resumed by primary service (4) Sleep apnea: Plan: BiPAP HS -has own machine in room (5) Hypertension: Plan: Continue losartan 100mg PO daily, metoprolol succinate 25mg PO HS HCTZ on hold as above due to hypokalemia, resume at d/c and f/u PCP BP stable (6) GERD (gastroesophageal reflux disease): Plan: Continue pantoprazole 40mg PO daily and famotidine 20mg PO BID (7) Asthma: Plan: Continue maintenance inhaler with Advair Diskus or hospital formulary equivalent Plan: VTE Prophylaxis - deferred to orthopedics--> ASA 81mg BID ordered Diet - T2DM Disposition - per orthopedics, planning d/c later today Hospitalist service will sign off. Please call with questions/concerns Admission and Anticipated Discharge Date Admission Date: July 31, 2021 Subjective Patient evaluated this afternoon Pain controlled Eating/drinking no issues Passing gas but no BM. already went to [facility] miralax/colace and he states he plans on d/c this afternoon. Breathing stable. Continues to use CPAP when sleeping. Hx asthma but rare issues/need for use of inhaler. No fever, chills, chest pain, shortness of breath, abd pain at this time. Sensation intact. Review of Systems Review of Systems: All systems reviewed & are unremarkable except as noted in HPI & below Physical Exam Constitutional: WD/WN, vitals as above + morbidly obese Eyes: + anicteric sclerae; normal pupil size ENMT: external ear and nose normal, oropharynx normal Neck: trachea midline, no thyromegaly Respiratory: normal respiratory effort, lungs clear to auscultation diminished in bases, on room air, no wheezing Cardiovascular: RRR, no murmur, no edema Gastrointestinal (Abdomen): Inspection/Auscultation: normal bowel sounds Percussion/Palpation: abdomen soft; abdomen nontender, no guarding and abdomen not rigid Musculoskeletal: R knee dressing intact, covered with tegaderm, slightly warm, expected edema calves non-tender pulses palpable NVI good strength dorsiflexion/plantar flexion Skin: warm, dry Neurologic: awake; not confused Psychiatric: A+Ox3, euthymic affect Genitourinary: no enriquez Results & Data Results & Data ([facility]) Vital Signs (Past 12 Hours) Vital Signs Temp Pulse Resp BP Pulse Ox 08/01/21 10:58 37 C 85 16 114/62 93 08/01/21 07:08 37 C 84 16 90/57 L 92 08/01/21 02:41 37.2 C 100 H 18 103/62 95 Laboratory Results 08/01/21 08/01/21 08/01/21 Range/Units 12:12 08:05 05:26 WBC (4.8-10.8) K/uL RBC (4.7-6.1) M/uL Hgb (14.0-18.0) g/dL Hct (42-52) % MCV (80-100) fL MCH (25-34) pg MCHC (32-36) g/dL RDW Std Deviation (36.4-46.3) fL RDW Coeff of Abby (11.5-14.5) % Plt Count (130-400) K/uL MPV (7.4-10.4) fL Sodium (136-145) mmol/L Potassium (3.5-5.1) mmol/L Chloride (98-107) mmol/L Carbon Dioxide (21-32) mmol/L Anion Gap (3-11) BUN (6-23) mg/dl Creatinine (0.6-1.4) mg/dl Est Cr Clr Drug Dosing ml/min Est GFR ( Amer) ml/min Est GFR (Non-Af Amer) ml/min BUN/Creatinine Ratio (10-20) Glucose (70-99(Fasting)) mg/dl POC Glucose 180 H 128 H (70-99) mg/dl Calcium (8.5-10.1) mg/dl Magnesium 1.7 (1.7-2.4) mg/dl 08/01/21 08/01/21 07/31/21 Range/Units 05:26 05:26 20:40 WBC 11.22 H (4.8-10.8) K/uL RBC 4.14 L (4.7-6.1) M/uL Hgb 11.8 L (14.0-18.0) g/dL Hct 34.9 L (42-52) % MCV 84.3 (80-100) fL MCH 28.5 (25-34) pg MCHC 33.8 (32-36) g/dL RDW Std Deviation 42.2 (36.4-46.3) fL RDW Coeff of Abby 13.8 (11.5-14.5) % Plt Count 213 (130-400) K/uL MPV 10.1 (7.4-10.4) fL Sodium 136 (136-145) mmol/L Potassium 3.3 L (3.5-5.1) mmol/L Chloride 102 (98-107) mmol/L Carbon Dioxide 28 (21-32) mmol/L Anion Gap 6 (3-11) BUN 16 (6-23) mg/dl Creatinine 0.91 (0.6-1.4) mg/dl Est Cr Clr Drug Dosing 132.8 ml/min Est GFR ( Amer) 113.5 ml/min Est GFR (Non-Af Amer) 97.9 ml/min BUN/Creatinine Ratio 17.6 (10-20) Glucose 155 H (70-99(Fasting)) mg/dl POC Glucose 113 H (70-99) mg/dl Calcium 8.1 L (8.5-10.1) mg/dl Magnesium (1.7-2.4) mg/dl 07/31/21 Range/Units 16:59 WBC (4.8-10.8) K/uL RBC (4.7-6.1) M/uL Hgb (14.0-18.0) g/dL Hct (42-52) % MCV (80-100) fL MCH (25-34) pg MCHC (32-36) g/dL RDW Std Deviation (36.4-46.3) fL RDW Coeff of Abby (11.5-14.5) % Plt Count (130-400) K/uL MPV (7.4-10.4) fL Sodium (136-145) mmol/L Potassium (3.5-5.1) mmol/L Chloride (98-107) mmol/L Carbon Dioxide (21-32) mmol/L Anion Gap (3-11) BUN (6-23) mg/dl Creatinine (0.6-1.4) mg/dl Est Cr Clr Drug Dosing ml/min Est GFR ( Amer) ml/min Est GFR (Non-Af Amer) ml/min BUN/Creatinine Ratio (10-20) Glucose (70-99(Fasting)) mg/dl POC Glucose 115 H (70-99) mg/dl Calcium (8.5-10.1) mg/dl Magnesium (1.7-2.4) mg/dl PG Care Time/CCT Total # of Minutes Spent Total Time Spent with Patient: Total time spent is greater than 50% in coordination of care (as documented) at patient's floor/unit and/or counseling patient: Coding Level of Care Code 08329 Subseq Obs Care Lvl 2 Diagnoses Status post total knee replacement Z96.659 Hypokalemia E87.6 Diabetes mellitus, type 2 E11.9 Sleep apnea G47.30 Hypertension I10 GERD (gastroesophageal reflux disease) K21.9 Asthma J45.909
--- NOTE | 2021-08-01 13:30 | Discharge Summary ---
Date of Service August 01, 2021 Admission HPI Per Admitting Provider Pt was seen and examined bedside. POD #1 s/p total knee arthroplasty. Pt was admitted last night for observation. No major events over night. Potassium improved to 3.3. Vitals are stable. X-rays show normal post operative changed. Pt reports they are doing well and pain is controlled. They are tolerating PO intake and voiding adequate amounts. Working well with PT/OT. Pt denies F/C, N/V/D, SOB, CP. Pt deemed medically stable and ready for discharge. Admission Exam Per Admitting Provider General: Pt laying in hospital bed AA&O, in NAD, calm and cooperative during exam Lower Extremity: Dressing in tact and not saturated. Incisions clean, dry and with minimal drainage and no surrounding erythema, warmth or purulent drainage. Pt has full ROM of ankle and all 5 digits. Pt has 5/5 strength with resisted DF/PF. SLR in tact. Calf supple and non tender. NVI with sensation to light touch distally and good distal pulses present. Lower extremity noted to have good color and temperature with no signs of vascular or lymphatic insufficiency. Principal Diagnosis right knee osteoarthritis s/p right total knee arthroplasty Discharge Data Allergies Allergy/AdvReac Type Severity Reaction Status Date / Time aspirin Allergy Intermediate Hives Verified 07/31/21 05:43 Penicillins Allergy Intermediate Hives Verified 07/31/21 05:43 prednisone Allergy Intermediate Dyspnea Verified 07/31/21 05:43 Consultations 07/31/21 10:39 Consult Hospitalist Routine Procedures Performed Operation Date: 06/19/21 07:00 <No data on this case meets the specified criteria> Operation Date: 07/31/21 07:00 Actual Procedures p Right Total Knee Arthroplasty(Right) - Chato Gonzales MD Ordered Studies 07/31/21 05:00 US - OR guided needle placemen Routine Hospital Course (1) Osteoarthritis of right knee: POD #1 s/p Right TKA, doing as well as expected. Diabetic diet. Increase potassium in diet per medicine. Will be d/c pt on 10meq K. Needs to follow up with PCP Resume home meds WBAT as tolerated with walker. OOB to chair. Continue pain control with oxycodone. DVT prophylaxis: TEDs 3 weeks, foot pumps while in hospital, ASA 81 mg BID for 6 weeks. PT/OT. Stable for d.c Follow up with [facility] ortho as scheduled and with PCP upon discharge. Total Time Total Time Spent Total Time Spent (In Minutes): 20 minutes Discharge Plan Discharge Items Patient Disposition: Home - Self-Care Reason For Visit: Right Knee Osteoarthritis Discharge Diagnosis: Right knee s/p total knee replacement Condition on Discharge: Good Activity: Per Instructions section Lifting: Wait until after follow-up appointment Bathing: Keep incision dry Sexual Activity: Wait until after follow-up appointment Exercise/Sports: Wait until after follow-up appointment Driving/Machine Use: No driving until cleared by Dr. Gonzalez Weightbearing: Full weightbearing Non-emergency contact: Surgeon Call non-emergency contact if: you have any medication questions, your pain is not controlled, your temperature is above 101, your wound has increased redness, your wound has increased drainage and your wound pain has increased Follow-up/Referrals: Adry Vegas PA-C [Primary Care Provider] - 08/05/21 8:05 am () Sepideh PA-C [Physician Dock Clerk] - 08/05/21 3:00 pm Diet: Carb Consistent or DM2 Addtl Attending Provider Instructions: Weight bearing as tolerated with walker to assist in ambulation Outpatient PT as scheduled. Script already provided Frequently ice and elevate You may shower on Post op Day 3. Leave Mepilex dressing in tact. No baths, hot tubs or swimming pools. Keep incision clean and dry. DVT prophylaxis: Aspirin 81mg twice a day for 6 weeks, RACHEL compression stockings for 3 weeks Pain control: oxycodone 5mg q 6 hours as needed, tylenol 500-100mg q 8 hours Follow up as scheduled with [facility] Orthopedics Follow up with Primary care physician regarding low potassium and BP med management Resume home meds, increase potassium in diet and continue 10meq K until follow up with PCP Pending Studies at Discharge: No Stand-Alone Forms: My [employer], Smoking Cessation Medications and DC Order Prescriptions: New oxycodone 5 mg tablet 10 mg PO Q6H PRN (Reason: pain) Qty: 24 RF: 0 Continued metformin 500 mg Tablet 500 mg PO BID RF: 0 fluticasone propion-salmeterol [Advair Diskus] 250-50 mcg/dose Blister With Device 1 inh INHALATION BID RF: 0 famotidine [Pepcid] 20 mg Tablet 20 mg PO BID RF: 0 potassium citrate 10 mEq (1,080 mg) Tablet Extended Release 10 meq PO UD RF: 0 pantoprazole [Protonix] 40 mg Tablet,Delayed Release (Dr/Ec) 40 mg PO QAM RF: 0 montelukast [Singulair] 10 mg Tablet 10 mg PO QAM RF: 0 hydrochlorothiazide 25 mg Tablet 25 mg PO QAM RF: 0 metoprolol succinate 25 mg Tablet Extended Release 24 Hr 25 mg PO HS RF: 0 albuterol sulfate 90 mcg/actuation Hfa Aerosol Inhaler 1 inh INHALATION QID PRN (Reason: sob) RF: 0 losartan 100 mg Tablet 100 mg PO QAM RF: 0 celecoxib [Celebrex] 200 mg Capsule 200 mg PO HS RF: 0 Trulicity 0.75 mg/0.5 mL Pen Injector 0.75 mg SUBCUT RF: 0 Discharge Orders: Discharge Order (Routine); Ordered 08/01/21 Ordered By: Sepideh Reyna Admission Data Admit Date/Time: 07/31/21 10:28 Attending Provider: Chato Gonzales Admit Provider: Chato Gonzales Primary Care Provider: Adry Vegas Other Providers: Stan Obregon ; Sinai Dubon ; Minh Drew ; aMrlon Vasquez ; Rubin Duron ; Cole Quintero ; Antoine Conklin ; Dick Hernandez ; Franchesca Antonio ; Melanie Jalloh Roy ; Meseret Alanis ; Siva Toussaint ; Demond Mobley ; Lety Garcia ; Natasha Dior ; Eladio Hansen ; Sinai Hall ; Shaggy Lam ; Aixa Conde ; Atif Allen ; Minh Navarro ; Louise Cline ; Sabrina Bellamy ; Jeremias Tang ; Monika Barber ; Chris Albarran ; Amilcar Campbell ; Rabia Kebede ; Karime Tarango ; Daivn Olivia Other Interventions: Discharge Summary Assessment (RN) Last Done: 08/01/21 15:04
== END 2021-08-01 16:00 | disposition home or self-care (01) ==
LOC: PACUINP 05:02 → ASU 05:02 → 3E 12:13